=== PATIENT | female | born 1955 | race Caucasian/White ===

== ENCOUNTER → 2016-09-11 | Outpatient (CLI) | payer BC ==
[~2016-09-11] MED LIST: BIAXIN FILMTAB500 MG PO; CEPHALEXIN500 M1 PO; LORTAB 5/500 501 TAB PO; LORTAB 7.5/5001 TAB PO; NAPROSYN PO; NO HOME MEDICATIONS; PERCOCET 5/321 UDTAB PO; phentermine PO
== END ==
LOC: MC.RAD 13:48
DX: Z12.31 Encounter for screening mammogram for malignant neoplasm of breast (principal)

== ENCOUNTER 2017-06-05 19:23 | Emergency (ER) | payer BC ==
[2017-06-05 19:28] VITALS: BP 162/98; TEMP 98.2
[2017-06-05 20:37] LABS: BASO % 0.2 % (0.0-2.0); EOS # 0.1 (0.0-0.7); EOS % 1.5 % (0-4.0); GRAN # 3.5 (1.4-6.5); GRAN % 74.2 % (42.2-75.2); HEMATOCRIT 43.4 % (37.0-47.0); HEMOGLOBIN 14.3 g/dl (12.5-16.0); LYMPH # 0.5 (1.2-3.4); MEAN CELL VOLUME 88 fl (80.0-100.0); MEAN CORPUSCULAR HEMOGLOBIN 29 pg (27.0-31.0); MEAN CORPUSCULAR HGB CONC 33 g/dl (33.0-37.0); MEAN PLATELET VOLUME 9.1 fl (7.4-10.4); MONO # 0.7 (0.1-0.6); MONO % 13.9 % (1.7-9.3); PLATELET COUNT 179 K/mm3 (130-400); RED BLOOD COUNT 4.93 M/mm3 (4.10-5.30); REDCELL DISTRIBUTION WIDTH-CV 13.2 % (11.5-14.5)
[2017-06-05 20:44] LABS: INFLUENZA A POSITIVE; INFLUENZA B NEGATIVE
[2017-06-05 20:47] LABS: ALBUMIN 4.4 gm/dL (3.5-5.0); BILIRUBIN,TOTAL 0.5 mg/dL (0.0-1.0); CALCIUM 8.8 mg/dL (8.4-10.2); CREATININE, serum 0.65 mg/dL (0.52-1.25); POTASSIUM 3.5 mmol/L (3.4-5.0); TOTAL PROTEIN 7.8 gm/dL (6.4-8.2)
[2017-06-05] MEDS ORDERED: TUSS PO (22:14)
[2017-06-05] MEDS ORDERED: TAMIFLU 75MG75 MG PO (22:14)
[2017-06-05] MEDS ORDERED: ZOFRAN 4MG T4 MG/TAB PO (22:14)
[2017-06-05 22:31] VITALS: PULSE 74
== END 2017-06-05 22:37 | disposition home or self-care (01) ==
LOC: COL.ER 19:23
PROVIDERS: Emergency Medicine
DX: J10.1 Influenza due to other identified influenza virus with other respiratory manifestations (principal); B34.9 Viral infection, unspecified; R11.10 Vomiting, unspecified
CPT/HCPCS: J1885; J2405; J7030

== ENCOUNTER → 2017-09-13 | Outpatient (CLI) | payer BC ==
[~2017-09-13] MED LIST changes: +TAMIFLU 75MG75 MG PO; +TUSS PO; +ZOFRAN 4MG T4 MG/TAB PO
== END ==
LOC: MC.RAD 07:39
DX: Z12.31 Encounter for screening mammogram for malignant neoplasm of breast (principal)

== ENCOUNTER 2018-04-20 15:25 | Observation (INO) | payer BC ==
[~2018-04-20] VITALS: Ht 160 cm; Wt 89.3 kg
[2018-04-20] MEDS ORDERED: MICROZIDE12.5 MG PO (15:58)
[2018-04-20] MEDS ORDERED: ZOCOR 10MG10 MG PO (15:59)
[2018-04-20 16:10] LABS: BASO % 0.1 % (0.0-2.0); EOS # 0.1 (0.0-0.7); EOS % 1.6 % (0-4.0); GRAN # 3.6 (1.4-6.5); GRAN % 53.8 % (42.2-75.2); HEMATOCRIT 43.3 % (37.0-47.0); HEMOGLOBIN 14.5 g/dl (12.5-16.0); LYMPH # 2.3 (1.2-3.4); LYMPH % 34.3 % (20.0-51.0); MEAN CELL VOLUME 88 fl (80.0-100.0); MEAN CORPUSCULAR HEMOGLOBIN 30 pg (27.0-31.0); MEAN CORPUSCULAR HGB CONC 34 g/dl (33.0-37.0); MEAN PLATELET VOLUME 9.3 fl (7.4-10.4); MONO # 0.7 (0.1-0.6); MONO % 9.9 % (1.7-9.3); PLATELET COUNT 243 K/mm3 (130-400); RED BLOOD COUNT 4.92 M/mm3 (4.10-5.30); REDCELL DISTRIBUTION WIDTH-CV 12.6 % (11.5-14.5)
[2018-04-20 16:14] LABS: INR 0.9 (0.8-3.0)
[2018-04-20 16:19] LABS: ALANINE AMINOTRANSFERASE 36 U/L (9-52); ALBUMIN 4.4 gm/dL (3.5-5.0); ALKALINE PHOSPHATASE 90 U/L (50-136); ANION GAP 9 mmol/L (7-16); AST,SGOT 35 U/L (15-37); BILIRUBIN,TOTAL 0.5 mg/dL (0.0-1.0); BLOOD UREA NITROGEN 16 mg/dL (7-17); CALCIUM 9.9 mg/dL (8.4-10.2); CARBON DIOXIDE 29 mmol/L (22-30); CHLORIDE 103 mmol/L (98-107); CREATININE, serum 0.77 mg/dL (0.52-1.25); GLUCOSE 96 mg/dL (74-106); POTASSIUM 3.3 mmol/L (3.4-5.0); SODIUM 141 mmol/L (137-145); TOTAL PROTEIN 7.8 gm/dL (6.4-8.2)
[2018-04-20 16:34] LABS: TROPONIN-I < 0.012 ng/mL (0.000-0.034)
[2018-04-20 16:44] LABS: D-DIMER < 200.00 ng/mLDDu (200-230)
[2018-04-20 16:45] LABS: ARTERIAL BLD GAS O2 SATURATION 97.6 % (92-100); ARTERIAL BLD GAS TCO2 CT 24.7; ARTERIAL BLOOD GAS BASE EXCESS 4.1 (-2-2); ARTERIAL BLOOD GAS HCO3 23.9 meq/L (22-26); ARTERIAL BLOOD GAS PCO2 24.2 mmHg (35-45)
[2018-04-20 16:47] LABS: ARTERIAL BLOOD GAS pH 7.61 (7.35-7.45)
[2018-04-20 19:59] VITALS: BP 126/70; PULSE 61; TEMP 97.9
[2018-04-20 20:07] VITALS: BP 126/70; PULSE 60; TEMP 97.9
[2018-04-21 01:07] VITALS: BP 102/68; PULSE 61; TEMP 97.9
[2018-04-21 04:51] VITALS: BP 120/70; PULSE 60; TEMP 98.1
[2018-04-21 04:54] VITALS: BP 120/70; PULSE 60; TEMP 98.1
[2018-04-21 08:17] VITALS: BP 111/64; PULSE 64; TEMP 97.9
[2018-04-21 09:03] LABS: BASO % 0.2 % (0.0-2.0); EOS # 0.1 (0.0-0.7); EOS % 1.7 % (0-4.0); GRAN # 2.2 (1.4-6.5); GRAN % 51.1 % (42.2-75.2); HEMATOCRIT 40.6 % (37.0-47.0); HEMOGLOBIN 13.4 g/dl (12.5-16.0); LYMPH # 1.5 (1.2-3.4); LYMPH % 36.1 % (20.0-51.0); MEAN CELL VOLUME 91 fl (80.0-100.0); MEAN CORPUSCULAR HEMOGLOBIN 30 pg (27.0-31.0); MEAN CORPUSCULAR HGB CONC 33 g/dl (33.0-37.0); MEAN PLATELET VOLUME 9.2 fl (7.4-10.4); MONO # 0.5 (0.1-0.6); MONO % 10.7 % (1.7-9.3); PLATELET COUNT 213 K/mm3 (130-400); RED BLOOD COUNT 4.46 M/mm3 (4.10-5.30); REDCELL DISTRIBUTION WIDTH-CV 12.8 % (11.5-14.5)
[2018-04-21 09:06] LABS: ANION GAP 4 mmol/L (7-16); BLOOD UREA NITROGEN 15 mg/dL (7-17); CALCIUM 9.2 mg/dL (8.4-10.2); CARBON DIOXIDE 31 mmol/L (22-30); CHLORIDE 107 mmol/L (98-107); CHOLESTEROL 163 mg/dL (120-200); CHOLESTEROL RISK RATIO 3.2; CREATININE, serum 0.76 mg/dL (0.52-1.25); GLUCOSE 80 mg/dL (74-106); HDL CHOLESTEROL 50 mg/dL; LDL CHOLESTEROL 99 mg/dL; POTASSIUM 3.7 mmol/L (3.4-5.0); SODIUM 142 mmol/L (137-145); TRIGLYCERIDE 68 mg/dL
[2018-04-21 09:34] LABS: TROPONIN-I < 0.012 ng/mL (0.000-0.034)
[2018-04-21] MEDS ORDERED: ZOCOR 40MG40 MG PO (10:08)
[2018-04-21] MEDS ORDERED: ASPIRIN E.C. 8181 MG PO (10:09)
== END 2018-04-21 13:00 | disposition home or self-care (01) ==
LOC: COL.ER 15:25 → MEDICAL 18:57
PROVIDERS: Emergency Medicine; Nurse Practitioner
DX: R07.89 Other chest pain (principal); I10 Essential (primary) hypertension; E78.5 Hyperlipidemia, unspecified; I08.1 Rheumatic disorders of both mitral and tricuspid valves; I25.10 Atherosclerotic heart disease of native coronary artery without angina pectoris; E87.6 Hypokalemia; Z90.710 Acquired absence of both cervix and uterus; Z80.1 Family history of malignant neoplasm of trachea, bronchus and lung; Z82.49 Family history of ischemic heart disease and other diseases of the circulatory system; Z82.3 Family history of stroke
CPT/HCPCS: G0378; J2270; J2405

== ENCOUNTER 2018-05-17 20:41 | Observation (INO) | payer BC ==
[~2018-05-17] VITALS: Ht 157.5 cm; Wt 86.9 kg
[2018-05-17] VITALS (37 sets, daily range): BP systolic 141; BP diastolic 75; PULSE 61; TEMP 97.6; O2SAT 94–98
[~2018-05-17 20:41] MED LIST changes: +ASPIRIN E.C. 8181 MG PO; +MICROZIDE12.5 MG PO; +ZOCOR 10MG10 MG PO; +ZOCOR 40MG40 MG PO
[2018-05-17 21:28] LABS: BASO % 0.2 % (0.0-2.0); EOS # 0.1 (0.0-0.7); EOS % 1.8 % (0-4.0); GRAN # 4.3 (1.4-6.5); GRAN % 64.2 % (42.2-75.2); HEMATOCRIT 40.4 % (37.0-47.0); HEMOGLOBIN 13.7 g/dl (12.5-16.0); LYMPH # 1.6 (1.2-3.4); LYMPH % 24.3 % (20.0-51.0); MEAN CELL VOLUME 88 fl (80.0-100.0); MEAN CORPUSCULAR HEMOGLOBIN 30 pg (27.0-31.0); MEAN CORPUSCULAR HGB CONC 34 g/dl (33.0-37.0); MEAN PLATELET VOLUME 9.1 fl (7.4-10.4); MONO # 0.6 (0.1-0.6); MONO % 9.2 % (1.7-9.3); PLATELET COUNT 233 K/mm3 (130-400); RED BLOOD COUNT 4.58 M/mm3 (4.10-5.30); REDCELL DISTRIBUTION WIDTH-CV 12.5 % (11.5-14.5)
[2018-05-17 21:34] LABS: PROTHROMBIN TIME 10.8 SECONDS (9.7-12.8)
[2018-05-17 21:37] LABS: PARTIAL THROMBOPLASTIN TIME 33.4 SECONDS (26.0-37.0)
[2018-05-17 21:38] LABS: ALANINE AMINOTRANSFERASE 22 U/L (9-52); ALBUMIN 4.1 gm/dL (3.5-5.0); ALKALINE PHOSPHATASE 84 U/L (50-136); ANION GAP 5 mmol/L (7-16); AST,SGOT 32 U/L (15-37); BILIRUBIN,TOTAL 0.3 mg/dL (0.0-1.0); BLOOD UREA NITROGEN 16 mg/dL (7-17); CALCIUM 9.4 mg/dL (8.4-10.2); CARBON DIOXIDE 31 mmol/L (22-30); CHLORIDE 105 mmol/L (98-107); CREATININE, serum 0.82 mg/dL (0.52-1.25); GLUCOSE 105 mg/dL (74-106); POTASSIUM 3.8 mmol/L (3.4-5.0); SODIUM 141 mmol/L (137-145); TOTAL PROTEIN 7.3 gm/dL (6.4-8.2)
[2018-05-17 21:49] LABS: TROPONIN-I < 0.012 ng/mL (0.000-0.034)
[2018-05-18] VITALS (502 sets, daily range): BP systolic 100–156; BP diastolic 59–83; PULSE 52–77; TEMP 97.7–98.4; O2SAT 90–100
[2018-05-18 08:06] LABS: BASO % 0.2 % (0.0-2.0); EOS # 0.1 (0.0-0.7); EOS % 2.5 % (0-4.0); GRAN # 2.4 (1.4-6.5); GRAN % 45.3 % (42.2-75.2); HEMATOCRIT 38.5 % (37.0-47.0); HEMOGLOBIN 12.7 g/dl (12.5-16.0); LYMPH # 2.2 (1.2-3.4); LYMPH % 40.8 % (20.0-51.0); MEAN CELL VOLUME 89 fl (80.0-100.0); MEAN CORPUSCULAR HEMOGLOBIN 30 pg (27.0-31.0); MEAN CORPUSCULAR HGB CONC 33 g/dl (33.0-37.0); MEAN PLATELET VOLUME 9.4 fl (7.4-10.4); MONO # 0.6 (0.1-0.6); PLATELET COUNT 228 K/mm3 (130-400); RED BLOOD COUNT 4.31 M/mm3 (4.10-5.30); REDCELL DISTRIBUTION WIDTH-CV 12.5 % (11.5-14.5)
[2018-05-18 08:14] LABS: ANION GAP 0 mmol/L (7-16); BLOOD UREA NITROGEN 15 mg/dL (7-17); CARBON DIOXIDE 33 mmol/L (22-30); CHLORIDE 108 mmol/L (98-107); CHOLESTEROL 148 mg/dL (120-200); CHOLESTEROL RISK RATIO 3.5; CREATININE, serum 0.71 mg/dL (0.52-1.25); GLUCOSE 87 mg/dL (74-106); HDL CHOLESTEROL 42 mg/dL; LDL CHOLESTEROL 86 mg/dL; POTASSIUM 4.5 mmol/L (3.4-5.0); SODIUM 141 mmol/L (137-145); TRIGLYCERIDE 101 mg/dL
[2018-05-18 08:26] LABS: TROPONIN-I < 0.012 ng/mL (0.000-0.034)
[2018-05-18] MEDS ORDERED: PRILOSEC 20MG20 MG PO (15:53)
[2018-05-18] MEDS ORDERED: ZOFRAN 4MG T4 MG/TAB PO (15:53)
== END 2018-05-18 19:40 | disposition home or self-care (01) ==
LOC: COL.ER 20:41 → ICU 22:08
PROVIDERS: Family Medicine; Hospitalist
DX: R07.89 Other chest pain (principal); I10 Essential (primary) hypertension; E78.5 Hyperlipidemia, unspecified; R11.2 Nausea with vomiting, unspecified; Z79.899 Other long term (current) drug therapy; Z79.82 Long term (current) use of aspirin; Z80.1 Family history of malignant neoplasm of trachea, bronchus and lung; E66.9 Obesity, unspecified; Z87.891 Personal history of nicotine dependence
CPT/HCPCS: 99222-AI; C1769; C1887; G0378; J1644; J1650; J2405; J2550; J7030; J7120; Q9967

== ENCOUNTER 2018-06-16 07:08 | Emergency (ER) | payer BC ==
[~2018-06-16] VITALS: Ht 157.5 cm; Wt 87.7 kg
[~2018-06-16 07:08] MED LIST changes: +PRILOSEC 20MG20 MG PO
[2018-06-16 07:12] VITALS: TEMP 98.1
[2018-06-16] MEDS ORDERED: PRILOSEC 20MG20 MG PO (07:21)
[2018-06-16] MEDS ORDERED: PRINIVIL10 MG PO (07:22)
[2018-06-16] MEDS ORDERED: CALCIUM 600MG+D1 TAB PO (07:23)
[2018-06-16] MEDS ORDERED: MULTIPLE VITAMI1 CAP PO (07:25)
[2018-06-16 08:33] VITALS: BP 113/54; PULSE 64
== END 2018-06-16 08:33 | disposition home or self-care (01) ==
LOC: COL.ER 07:08
DX: S60.121A Contusion of right index finger with damage to nail, initial encounter (principal); E78.00 Pure hypercholesterolemia, unspecified; Z23 Encounter for immunization; Z79.82 Long term (current) use of aspirin; W22.8XXA Striking against or struck by other objects, initial encounter; Y92.59 Other trade areas as the place of occurrence of the external cause

== ENCOUNTER 2018-07-07 13:45 | Outpatient (RCR) | payer OTHER ==
[~2018-07-07 13:45] MED LIST changes: +CALCIUM 600MG+D1 TAB PO; +MULTIPLE VITAMI1 CAP PO; +PRINIVIL10 MG PO
== END 2018-10-05 | disposition home or self-care (01) ==
LOC: WSOH
DX: S60.121D Contusion of right index finger with damage to nail, subsequent encounter (principal); W20.8XXD Other cause of strike by thrown, projected or falling object, subsequent encounter; Z87.891 Personal history of nicotine dependence

== ENCOUNTER → 2018-10-13 | Outpatient (CLI) | payer BC | LOC: MC.RAD 07:29 | DX: Z12.31 Encounter for screening mammogram for malignant neoplasm of breast (principal) ==

== ENCOUNTER → 2019-11-21 | Outpatient (CLI) | payer BC | LOC: MC.RAD 13:18 | DX: Z12.31 Encounter for screening mammogram for malignant neoplasm of breast (principal) ==

== ENCOUNTER → 2020-11-21 | Outpatient (CLI) | payer BC ==
[~2020-11-21] MED LIST changes: +CRUTCHES MC; +NAPROSYN500 MG PO
== END ==
LOC: MC.RAD 09:08
DX: Z12.31 Encounter for screening mammogram for malignant neoplasm of breast (principal)

== ENCOUNTER 2021-01-05 23:08 | Emergency (ER) | payer BC ==
[~2021-01-05] VITALS: Ht 157.5 cm; Wt 72.7 kg
[~2021-01-05 23:08] MED LIST changes: -CRUTCHES MC; -NAPROSYN500 MG PO
[2021-01-05 23:09] VITALS: TEMP 98.6
[2021-01-06] MEDS ORDERED: CRUTCHES MC (01:02)
[2021-01-06] MEDS ORDERED: NAPROSYN500 MG PO (01:02)
[2021-01-06 01:26] VITALS: BP 120/90; PULSE 78
== END 2021-01-06 01:26 | disposition home or self-care (01) ==
LOC: COL.ER 23:08
DX: S89.91XA Unspecified injury of right lower leg, initial encounter (principal); R60.0 Localized edema; I10 Essential (primary) hypertension; E78.5 Hyperlipidemia, unspecified; Z79.899 Other long term (current) drug therapy; W18.30XA Fall on same level, unspecified, initial encounter; Y93.K1 Activity, walking an animal
CPT/HCPCS: J2405; J3010; L1846

== ENCOUNTER 2021-10-03 08:55 | Emergency (ER) | payer BC ==
[~2021-10-03] VITALS: Ht 157.5 cm; Wt 84.1 kg
[~2021-10-03 08:55] MED LIST changes: +CRUTCHES MC; +NAPROSYN500 MG PO
[2021-10-03 09:12] VITALS: TEMP 97.8
[2021-10-03 09:37] LABS: COLLECTION METHOD CLEAN CATCH
[2021-10-03 09:41] LABS: BASO % 0.1 % (0.0-2.0); EOS # 0.1 K/mm3 (0.0-0.7); GRAN # 6.8 K/mm3 (1.4-6.5); GRAN % 73.4 % (42.2-75.2); HEMATOCRIT 38.6 % (37.0-47.0); HEMOGLOBIN 12.8 g/dl (12.5-16.0); LYMPH # 1.4 K/mm3 (1.2-3.4); LYMPH % 15.6 % (20.0-51.0); MEAN CELL VOLUME 88 fl (80.0-100.0); MEAN CORPUSCULAR HEMOGLOBIN 29 pg (27-31); MEAN CORPUSCULAR HGB CONC 33 g/dl (33.0-37.0); MEAN PLATELET VOLUME 9.4 fl (7.4-10.4); MONO # 0.9 K/mm3 (0.1-0.6); MONO % 9.6 % (1.7-9.3); PLATELET COUNT 215 K/mm3 (130-400); REDCELL DISTRIBUTION WIDTH-CV 12.6 % (11.5-14.5)
[2021-10-03 09:46] LABS: MUCOUS Present (NOT PRESENT); PH 5 (5-8); URINE APPEARANCE Cloudy (CLEAR/HAZY); URINE BACTERIA Rare /hpf (NONE SEEN); URINE BILIRUBIN Negative (NEGATIVE); URINE BLOOD Negative (NEGATIVE); URINE COLOR Amber (YELLOW); URINE GLUCOSE Negative (NEGATIVE); URINE KETONE Trace (NEGATIVE); URINE LEUKOCYTE ESTERASE 3+ (NEGATIVE); URINE NITRATE Negative (NEGATIVE); URINE PROTEIN(semi-quant) 1+ (NEGATIVE); URINE RBC 20-50 /hpf (0-2); URINE UROBILINOGEN Negative (NEGATIVE)
[2021-10-03 10:00] LABS: ALBUMIN 3.6 gm/dL (3.4-4.8); BILIRUBIN,TOTAL 0.8 mg/dL (0.2-1.2); CALCIUM 9.6 mg/dL (8.4-10.2); CREATININE, serum 0.77 mg/dL (0.57-1.11); POTASSIUM 3.6 mmol/L (3.5-4.5); TOTAL PROTEIN 7.3 gm/dL (6.2-8.1)
[2021-10-03] MEDS ORDERED: CIPRO 500MG TA500 MG PO (11:58)
[2021-10-03] MEDS ORDERED: FLAGYL500 MG PO (11:58)
[2021-10-03 12:18] VITALS: BP 112/73; PULSE 69
[2021-10-04] MEDS ORDERED: ZOFRAN ODT4 MG PO (15:13)
[2021-10-05] MEDS ORDERED: AMOXICILLIN 8751 TAB PO (10:32)
== END 2021-10-03 12:18 | disposition home or self-care (01) ==
LOC: COL.ER 08:55
PROVIDERS: Emergency Medicine
DX: N39.0 Urinary tract infection, site not specified (principal); K57.32 Diverticulitis of large intestine without perforation or abscess without bleeding; Z87.19 Personal history of other diseases of the digestive system; Z90.710 Acquired absence of both cervix and uterus

== ENCOUNTER → 2024-01-19 | Outpatient (CLI) | payer MEDICARE, BC ==
[~2024-01-19] MED LIST changes: +AMOXICILLIN 8751 TAB PO; +CIPRO 500MG TA500 MG PO; +FLAGYL500 MG PO; +ZOFRAN ODT4 MG PO
== END ==
LOC: MC.RAD 10:56
DX: Z12.31 Encounter for screening mammogram for malignant neoplasm of breast (principal)